=== PATIENT | male | born 1955 | race Two or more races ===

== ENCOUNTER 2019-12-28 18:22 | Inpatient (IN) | payer SELFPAY ==
[~2019-12-28] VITALS: Ht 180.3 cm; Wt 75.3 kg
[2019-12-28] MEDS ORDERED: VISCOUS LIDOCAINE 2% 15 ML UDC PO ONE (19:30)
[2019-12-28] MEDS ORDERED: ASPIRIN 325MG TABLET PO ONE (19:30)
[2019-12-28] MEDS ORDERED: MAGNESIUM/ALUMINUM HYDROXIDE/SIMETHICONE 30ML UDC PO ONE (19:30)
[2019-12-28 19:32] LABS: BASOPHILS % 0.6 % (0.0-2.0); EOSINOPHILS % 0.8 % (0.0-5.0); HEMATOCRIT. 44.3 % (42.0-52.0); HEMOGLOBIN. 15.4 g/dL (14.0-18.0); LYMPHOCYTES % 16.3 % (20.0-50.0); MEAN CORPUSCULAR HEMOGLOBIN 30.3 pg (28.0-32.0); MEAN CORPUSCULAR VOLUME 87.5 fL (80.0-94.0); MEAN PLATELET VOLUME 8.2 fl (7.4-10.4); MONOCYTES % 6.6 % (2.0-8.0); NEUTROPHILS % 75.7 % (40.0-76.0); PLATELET 284 x1000/uL (130-400); RED BLOOD CELL COUNT 5.06 mill/uL (4.7-6.1); RED CELL DISTRIBUTION WIDTH 15.3 % (11.6-14.6)
[2019-12-28 19:36] LABS: CHLORIDE 103 mEq/L (98-107)
[2019-12-28] MEDS ORDERED: ALTEPLASE 100MG/VIAL IV NR (20:46)
[2019-12-28] MEDS ORDERED: ALTEPLASE IV NR (20:48)
[2019-12-28] MEDS ORDERED: *NO ASPIRIN X 24 HOURS XX SCH (21:00)
[2019-12-28] MEDS ORDERED: HYDROCODONE/ACETAMINOPHEN 5/325MG TABLET PO ONE (21:45)
[2019-12-28] MEDS ORDERED: ONDANSETRON HCL 4MG/2ML INJ IV ONE (21:45)
[2019-12-28 21:53] LABS: ETHANOL BLOOD < 10 mg/dL
[2019-12-28 21:56] LABS: PROTHROMBIN TIME 10.9 sec (9.6-11.0)
[2019-12-28 21:57] LABS: LDL CHOLESTEROL 71 mg/dL (5-100)
[2019-12-29] VITALS (18 sets, daily range): BP systolic 87–131; BP diastolic 41–72
[2019-12-29] MEDS ORDERED: KETOROLAC 15MG/ML VIAL IV ONE (01:00)
[2019-12-29 01:45] LABS: CLARITY URINE CLEAR (CLEAR); COLOR URINE YELLOW (YELLOW); KETONES URINE 1+ (NEGATIVE); LEUKOCYTE ESTERASE URINE NEGATIVE (NEGATIVE); NITRITE URINE NEGATIVE (NEGATIVE); OCCULT BLOOD URINE 1+ (NEGATIVE); PH URINE 5.5 (4.5-8.0); PROTEIN URINE TRACE (NEGATIVE); SPECIFIC GRAVITY URINE 1.045 (1.005-1.030)
[2019-12-29 01:59] LABS: *COCAINE SCREEN URINE NEGATIVE (NEGATIVE); METHADONE URINE SCREEN NEGATIVE (NEGATIVE); OPIATES URINE SCREEN PRESUMTIVE POSITIVE (NEGATIVE); PHENCYCLIDINE URINE SCREEN NEGATIVE (NEGATIVE)
[2019-12-29 02:00] LABS: *AMPHETAMINES SCREEN URINE NEGATIVE (NEGATIVE); *BARBITURATES SCREEN URINE NEGATIVE (NEGATIVE); *BENZODIAZEPINES SCREEN URINE NEGATIVE (NEGATIVE); CANNABINOID URINE SCREEN NEGATIVE (NEGATIVE)
[2019-12-29] MEDS: MORPHINE SULFATE 2 MG/ML CPJ (NOT FOR IM USE) IV PRN ×3 (06:47→19:25)
[2019-12-29] MEDS ORDERED: LORAZEPAM 2MG/ML CPJ IV NR ×2 (10:30→11:15)
[2019-12-29] MEDS ORDERED: ASPIRIN 81MG EC TABLET PO SCH (11:15)
[2019-12-29] MEDS ORDERED: CLOPIDOGREL 75MG TABLET PO SCH (11:36)
[2019-12-29] MEDS: ATORVASTATIN CALCIUM 40MG TABLET PO SCH (22:00)
[2019-12-30] VITALS (16 sets, daily range): BP systolic 85–132; BP diastolic 42–86
[2019-12-30] MEDS: MORPHINE SULFATE 2 MG/ML CPJ (NOT FOR IM USE) IV PRN ×6 (00:42→21:12)
[2019-12-30 05:43] LABS: BASOPHILS % 0.7 % (0.0-2.0); HEMATOCRIT. 38.2 % (42.0-52.0); HEMOGLOBIN. 12.9 g/dL (14.0-18.0); LYMPHOCYTES % 34.3 % (20.0-50.0); MEAN CORPUSCULAR HEMOGLOBIN 29.7 pg (28.0-32.0); MEAN CORPUSCULAR VOLUME 87.8 fL (80.0-94.0); MEAN PLATELET VOLUME 8.3 fl (7.4-10.4); MONOCYTES % 9.1 % (2.0-8.0); NEUTROPHILS % 50.9 % (40.0-76.0); PLATELET 244 x1000/uL (130-400); RED BLOOD CELL COUNT 4.35 mill/uL (4.7-6.1); RED CELL DISTRIBUTION WIDTH 15.1 % (11.6-14.6)
[2019-12-30 05:50] LABS: CHLORIDE 108 mEq/L (98-107)
[2019-12-30 05:59] LABS: HDL CHOLESTEROL 46 mg/dL (40-59)
[2019-12-30 06:00] LABS: LDL CHOLESTEROL 41 mg/dL (5-100)
[2019-12-30 06:02] LABS: CREATINE KINASE 37 IU/L (39-308); T4 FREE 1.15 ng/dL (0.76-1.46)
[2019-12-30 06:05] LABS: CREATINE KINASE MB FRACTION < 1.0 ng/mL (0.5-3.6)
[2019-12-30 06:16] LABS: FOLIC ACID (FOLATE) SERUM 12.5 ng/mL (>5.38)
[2019-12-30] MEDS: CLOPIDOGREL 75MG TABLET PO SCH (11:32)
[2019-12-30] MEDS: ATORVASTATIN CALCIUM 40MG TABLET PO SCH (20:34)
[2019-12-31 01:10] VITALS: BP 105/66
[2019-12-31] MEDS: MORPHINE SULFATE 2 MG/ML CPJ (NOT FOR IM USE) IV PRN ×2 (01:11→09:09)
[2019-12-31] MEDS ORDERED: REGADENOSON 0.4 MG/5 ML IV ONE ×2 (08:24→13:45)
[2019-12-31] MEDS: CLOPIDOGREL 75MG TABLET PO SCH (09:09)
[2019-12-31 09:15] VITALS: BP 119/76
[2019-12-31] MEDS ORDERED: LIP40 PO (11:22)
[2019-12-31] MEDS ORDERED: CLOP75TA15 PO (11:22)
[2019-12-31] MEDS ORDERED: LIP40 MT (11:23)
[2019-12-31] MEDS ORDERED: CLOP75TA4 MT (11:23)
[2019-12-31] MEDS ORDERED: TRAMADOL 50MG TABLET PO PRN (11:30)
[2019-12-31] MEDS ORDERED: ENOXAPARIN 40MG/0.4ML SYR SUBCUT SCH (12:00)
[2019-12-31 16:14] VITALS: BP 120/70
[2019-12-31] MEDS: ATORVASTATIN CALCIUM 40MG TABLET PO SCH (20:51)
[2020-01-01 04:00] VITALS: BP 133/93
[2020-01-01 08:39] VITALS: BP 122/79
[2020-01-01] MEDS: CLOPIDOGREL 75MG TABLET PO SCH (08:52)
== END 2020-01-01 13:21 | disposition home or self-care (01) | DRG 203 ==
LOC: ER 18:22 → CVICU 12-29 00:59 → EDBEDREQTM 12-29 01:00 → EDBEDREQ 12-29 01:00 → EDBEDREQDT 12-29 01:00 → CANRESERV 12-29 01:19 → ENRESERV 12-29 01:19 → EDBEDREQTM 12-29 03:33 → EDBEDREQSVC 12-29 03:33 → ENRESERV 12-29 07:25 → 3WST 12-30 12:09
PROVIDERS: ADMIT Internal Medicine; ATTEND Internal Medicine
DX: R07.89 Other chest pain (principal); G81.91 Hemiplegia, unspecified affecting right dominant side; F17.210 Nicotine dependence, cigarettes, uncomplicated; J44.9 Chronic obstructive pulmonary disease, unspecified; Z96.649 Presence of unspecified artificial hip joint; Z86.73 Personal history of transient ischemic attack (TIA), and cerebral infarction without residual deficits; R47.1 Dysarthria and anarthria
CPT/HCPCS: 36415; 70496; 70498; 70551; 71045; 78452; 80048; 80053; 80061; 80305; 80320; 81003; 82550; 82553; 82607; 82746; 82962; 83036; 83721; 83880; 84439; 84443; 84481; 84484; 85025; 93005; 93017; 93306; 97162; 97166; 99291; A9500; J1885; J2060; J2270; J2785; J2997; Q9967; G0480